=== PATIENT | female | born 1985 | race Caucasian/White ===

== ENCOUNTER 2024-02-02 08:00 | Outpatient (CLI) | payer BC, SELFPAY | END 2024-02-02 08:01 | disposition home or self-care (01) | LOC: NFLDREF 18:18 | PROVIDERS: PCP Physician Assistant Medical; Referring Provider Physician Assistant Medical; Visit Provider Physician Assistant Medical | DX: Z13.220 Encounter for screening for lipoid disorders (principal) | CPT/HCPCS: 80061 ==